=== PATIENT | male | born 1945 | race Caucasian/White ===

== ENCOUNTER 2016-12-08 16:24 | Emergency (ER) | payer MEDICARE ==
--- NOTE | 2016-12-08 17:38 | UC ---
Complaint Male HPI - HPI Summary HPI Summary: Pt resides at a intermediate. Pt presents with caregiver staff. Pt noted to have a rash today on genital area - brought for eval. Pt noted to itch earlier. Pt with limited communication but denies pain. no fevers,c hills.. No incontinence. No penile dsicharge or odor. Pt is not a diabetic Pt's medications reviewed at this visit - History of Current Complaint Chief Complaint: UCSkin Stated Complaint: YEAST INFECTION Time Seen by Provider: 12/08/16 17:19 Hx Obtained From: Patient, Family/Food Photographer, Medical Records Hx From Patient Unobtainable Due To: Other - pt with MR Severity Initially: Mild Severity Currently: Mild Location: Suprapubic Associated Signs And Symptoms: Positive: Negative - Allergies/Home Medications Allergies/Adverse Reactions: Allergies Allergy/AdvReac Type Severity Reaction Status Date / Time No Known Allergies Allergy Verified 12/08/16 16:44 Home Medications: Home Medications Acetaminophen TAB* [Tylenol TAB*] 325 mg PO Q4H PRN 12/08/16 [History Confirmed 12/08/16] Alum & Mag Hydrox-Simethicone [Mylanta] 1 chavo PO Q4H PRN 12/08/16 [History Confirmed 12/08/16] Calcium Polycarbophil TAB* [Fibercon TAB*] 625 mg PO DAILY 12/08/16 [History Confirmed 12/08/16] Carbamide Peroxide 6.5% OTIC* [DEBROX 6.5% Otic*] 5 drop LEFT EAR QID PRN [History Confirmed 12/08/16] Dicyclomine CAP* [Bentyl CAP*] 20 mg PO TID 12/08/16 [History Confirmed 12/08/16 ] Dutasteride (NF) [Avodart (NF)] 0.5 mg PO DAILY 12/08/16 [History Confirmed ] Ketoconazole 2 % CREAM (NF) [Nizoral 2% CREAM (NF)] 1 applic TOPICAL BID [History Confirmed 12/08/16] Latanoprost 0.005%* [Xalatan 0.005%*] 1 drop BOTH EYES QPM 12/08/16 [History Confirmed 12/08/16] Lapel Carbonate ER TAB* 450 mg PO BID 12/08/16 [History Confirmed 12/08/16] Loratadine 10 mg PO DAILY 12/08/16 [History Confirmed 12/08/16] Memantine TAB* [Namenda TAB*] 5 mg PO BID 12/08/16 [History Confirmed 12/08/16] Multiple Vitamin [Multi Vitamin] 1 tab PO DAILY 12/08/16 [History Confirmed ] Omeprazole CAP* [Prilosec CAP* 20 MG] 20 mg PO BID 12/08/16 [History Confirmed 12/08/16] celeCOXIB CAP* [CeleBREX CAP*] 200 mg PO BID 12/08/16 [History Confirmed ] PMH/Surg Hx/FS Hx/Imm Hx Previously Healthy: Yes Psychological History: Anxiety, Depression, Other - MR Other Psychological History: MR - Surgical History Surgical History: Yes Surgery Procedure, Year, and Place: Hip and knee replacements. BPH. foreign body removal - Family History Known Family History: Positive: Unknown - Social History Occupation: Disabled Lives: With Family - intermediate Alcohol Use: None Substance Use Type: None Smoking Status (MU): Never Smoked Tobacco - Immunization History Most Recent Influenza Vaccination: no Review of Systems Constitutional: Negative Skin: Rash Genitourinary: Negative All Other Systems Reviewed And Are Negative: Yes Physical Exam Triage Information Reviewed: Yes Appearance: Well-Appearing, No Pain Distress, Well-Nourished Vital Signs: Initial Vital Signs Temp 98.2 F 12/08/16 16:35 Pulse 61 12/08/16 16:35 Resp 16 12/08/16 16:35 BP 121/69 12/08/16 16:35 Pulse Ox 98 12/08/16 16:35 Eye Exam: Normal Eyes: Positive: Conjunctiva Clear ENT Exam: Normal ENT: Positive: Hearing grossly normal. Negative: Nasal drainage Dental Exam: Normal Respiratory: Positive: Chest non-tender, Lungs clear, Normal breath sounds, No respiratory distress, No accessory muscle use Cardiovascular Exam: Normal Cardiovascular: Positive: RRR, No Murmur Abdominal Exam: Normal Abdomen Description: Positive: Nontender, No Organomegaly, Soft, Other: - testes down b/l Pt with red, diffuse, moist rash on suprapubic area, scrotum, and scant on medial thighs b/l no pain no lesions Musculoskeletal Exam: Normal Musculoskeletal: Positive: Strength Intact Neurological Exam: Normal Psychological Exam: Normal Psychological: Positive: Other: - baseline per caregiver Complaint Male Course/Dx - Course Course Of Treatment: Pt with rash including scrotum, suprapubic, and medial thighs c/w yeast infection. Pt well appearing. no lesions. rx nystatin and f/ u with PCP. return precautions discussed - Differential Dx/Diagnosis Provider Diagnoses: candidal infection Discharge - Discharge Plan Condition: Stable Disposition: HOME Prescriptions: Nystatin CREAM* [Nystatin Cream*] 1 applic TOPICAL BID #1 tube Patient Education Materials: Skin Yeast Infection (ED) Referrals: No Primary Care Phys,NOPCP [Primary Care Provider] - Additional Instructions: Apply nystatin cream 2 times a day for 10 days Contact his doctor to schedule a follow-up appointment in 2-3 days If there is difficulty with urination, pain, fever, chills or other concerns contact his doctor or return
== END 2016-12-08 17:50 | disposition home or self-care (01) ==
LOC: UCCORT 16:24
DX: B37.9 Candidiasis, unspecified (principal); F41.9 Anxiety disorder, unspecified; F32.9 Major depressive disorder, single episode, unspecified
CPT/HCPCS: 99202; G0463